=== PATIENT | female | born 1940 | race Caucasian/White ===

== ENCOUNTER 2024-01-12 13:47 | Outpatient (CLI) | payer OTHER, SELFPAY | END 2024-01-12 13:48 | disposition home or self-care (01) | LOC: AMB 01-30 00:03 | PROVIDERS: Visit Provider Student in an Organized Health Care Education/Training Program | DX: S42.91XA Fracture of right shoulder girdle, part unspecified, initial encounter for closed fracture (principal) | CPT/HCPCS: A0425; A0428 ==